=== PATIENT | female | born 1955 | race Caucasian/White ===

== ENCOUNTER 2023-01-23 07:59 | Outpatient (RCR) | payer MEDICARE, SELFPAY ==
--- NOTE | 2023-01-23 13:37 | OPREHPOC ---
Outpatient Therapy Plan of Care This is a Multidisciplinary Plan of Care that may contain components documented by all disciplines (PT, OT, and ST.) PT Problem 1 PT Problem #1 Knowledge Deficit PT Goal 1 Goal 1. Patient to demonstrate independence with HEP to improve progress made in PT. Target Visit 4 PT Problem 2 PT Problem #2 Impaired Strength PT Goal 1 Goal 1. Patient to improve R hip abduction to 4/5 or more to improve strength for stair climbing. 2. Patient to increase R hip flexion/extension/ adduction strength to 4+/5 or greater to improve gait mechanics 3. Patient to improve L hip strength to 5/5 overall to improve gait mechanics. 4. Patient to improve R knee strength to 5/5 overall to allow for patient to perform a squat to reach the floor. Target Visit 8 PT Problem 3 PT Problem #3 Impaired Flexibility PT Goal 1 Goal 1. Patient to increase R hamstring flexibility to lacking no more than 5 degrees to improve ability to reach LEs for donning shoes. Target Visit 8 PT Problem 4 PT Problem #4 Impaired Gait PT Goal 1 Goal 1. Patient to ambulate with equal step length with no AD to improve ability to walk in her neighborhood. 2. Patient to improve distance ambulated during 6 minute walk test to 950 feet to improve endurance for shopping in grocery store. Target Visit 8 PT Problem 5 PT Problem #5 Impaired Functional Mobil PT Goal 1 Goal 1. 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 2. Patient to ascend/descend stairs with reciprocal pattern to allow patient to navigate community environments. Target Visit 8
--- NOTE | 2023-01-23 13:38 | PTOPEVAL1 ---
Assessment and note entered by JT File, PT Evaluation Information Assessment Status Evaluation Diagnosis R hip weakness Onset 01/17/23 Subjective Information Patient reports she had a hip replacement this October, but since this she feels like she has not been walking correctly. She visited the doctor and had x-rays done showing good alignment of the replacement. The doctor suggested the impaired walking may be caused by a weak abductor muscle, and has suggested she walk with a cane. She had PT following the surgery before she moved here in November. She reports some pain occasionally in the hip, mainly along the incision. She is most worried about walking without a limp. 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 She notes she goes sideways up stairs unless she is using the cane. Reported Pain Level Pain Score 0: Self Report Assessment PT Clinical Summary Flakita Alston is a 67 y/o female who presents to skilled PT to address R hip weakness following a MARINA. She presents with impairments in LE strength, ROM, and flexibility. Patient currently has 45% functional decline as assessed by the LEFS. She shows impairments in gait and stair climbing due to limited strength in bilat LEs, limiting her mobility in the home and community. Patient would benefit from skilled PT to address strength, flexibility, ROM, and gait to help her improve function in her daily life. Plan of Care Interventions Electrical Stimulation,Gait Training,Hot Pack/Cold Pack,Manual Therapy,Neuro Re-education,Patient/ Caregiver Educati,Therapeutic Activities, Therapeutic Exercise PT Services Indicated Yes Treatment Frequency and 2x/week for 8 visits Duration These treatments will address the objective and functional deficits as defined above. The patient will be advanced safely and appropriately in order for the patient to progress towards his/her prior level of function. Additional exercises will be introduced and as well as a comprehensive home exercise program upon discharge, if needed, ?to ensure carryover of functional gains achieved in the clinic. This treatment plan has been reviewed and agreement upon by the patient.
--- NOTE | 2023-02-13 08:22 | PTOPDC ---
Assessment and note entered by Melanie No, PT Evaluation Information Assessment Status Discharge Diagnosis R hip weakness Onset 01/17/23 Subjective Information Flakita Alston reports her right hip is doing better. She notes very little pain and feels she has no limitations with her daily function and ability to walk. She feels stronger but still takes stairs one at a time going down. She is able to take them step over step going up and she can grocery shop without limitations. She no longer uses her cane but does take it with her just in case. She feels she has improved 50% overall since initiating PT and that she can continue on her own with home exercises. Reported Pain Level Pain Score 2: Self Report Assessment PT Clinical Summary Flakita Alston has completed 7 skilled PT sessions for right hip weakness. She is reporting a 50% improvement in her symptoms since initiating PT. She is able to perform her daily tasks and walk unlimited without an AD. She demonstrates improved hip and knee strength, improved gait, and improved distance on the 6 minute walk test. She demonstrates good balance and is independent in a home exercise program for hip strengthening to continue after discharge. Plan of Care PT Services Indicated No
--- NOTE | 2023-02-13 08:23 | OPREHPOC ---
Outpatient Therapy Plan of Care This is a Multidisciplinary Plan of Care that may contain components documented by all disciplines (PT, OT, and ST.) PT Problem 1 PT Problem #1 Knowledge Deficit PT Goal 1 Goal 1. Patient to demonstrate independence with HEP to improve progress made in PT. Target Visit 4 Progress Met PT Problem 2 PT Problem #2 Impaired Strength PT Goal 1 Goal 1. Patient to improve R hip abduction to 4/5 or more to improve strength for stair climbing. - progress toward 2. Patient to increase R hip flexion/extension/ adduction strength to 4+/5 or greater to improve gait mechanics -partially met 3. Patient to improve L hip strength to 5/5 overall to improve gait mechanics. -partially met 4. Patient to improve R knee strength to 5/5 overall to allow for patient to perform a squat to reach the floor. -met Target Visit 8 Progress Partially Met PT Problem 3 PT Problem #3 Impaired Flexibility PT Goal 1 Goal 1. Patient to increase R hamstring flexibility to lacking no more than 5 degrees to improve ability to reach LEs for donning shoes. Target Visit 8 Progress Not Met PT Problem 4 PT Problem #4 Impaired Gait PT Goal 1 Goal 1. Patient to ambulate with equal step length with no AD to improve ability to walk in her neighborhood. -met 2. Patient to improve distance ambulated during 6 minute walk test to 950 feet to improve endurance for shopping in grocery store. -not met Target Visit 8 Progress Partially Met PT Problem 5 PT Problem #5 Impaired Functional Mobil PT Goal 1 Goal 1. 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 -progress toward, not met 2. Patient to ascend/descend stairs with reciprocal pattern to allow patient to navigate community environments. -partially met (met on ascent but not descent) Target Visit 8
== END 2023-02-13 15:53 | disposition home or self-care (01) ==
LOC: CHSPT 07:59
PROVIDERS: PCP Family Medicine; Visit Provider Orthopaedic Surgery
DX: Z47.1 Aftercare following joint replacement surgery (principal); Z96.641 Presence of right artificial hip joint
CPT/HCPCS: 97110; 97161

== ENCOUNTER 2024-08-25 09:03 | Outpatient (RCR) | payer MEDICARE, SELFPAY ==
--- NOTE | 2024-08-25 09:04 | OPREHPOC ---
Outpatient Therapy Plan of Care This is a Multidisciplinary Plan of Care that may contain components documented by all disciplines (PT, OT, and ST.) PT Problem 1 PT Problem #1 Knowledge Deficit PT Goal 1 Goal / Goal Update independent and compliant with HEP Target Visit 6 PT Problem 2 PT Problem #2 Pain PT Goal 1 Goal / Goal Update 3/10 or less pain at worst in the lower back Target Visit 12 PT Problem 3 PT Problem #3 Impaired Range of Motion PT Goal 1 Goal / Goal Update 20 degrees active lumbar extension 20 degrees active bilateral side bending Target Visit 12 PT Problem 4 PT Problem #4 Impaired Strength PT Goal 1 Goal / Goal Update R hip abd 4-/5 or better core strength to improve to 3+/5 or better overall Target Visit 12 PT Problem 5 PT Problem #5 Impaired Functional Mobility PT Goal 1 Goal / Goal Update oswestry to display 20% or less functional deficits patient to tolerate sleeping through the night 5 nights a week patient to safely squat and lift small object from floor Target Visit 12
--- NOTE | 2024-08-25 09:05 | PTOPEVAL1 ---
Assessment and note entered by JT File, PT Evaluation Information Assessment Status Evaluation ICD-10 Condition Codes (PT) Pain in low back M54.50 Onset 06/26/24 Subjective Information patient reports she tripped and fell at the grocery store on 06/26/24 and got a compression fracture of the L1 vertebrae. she reports she did struggle to get up from the ground. she reports she has pain in the lower back all the time. she reports she did not have to wear a brace at all after her fracture. she reports she has increased pain with laying flat on her back to go to bed. she reports she is having an MRI at the end of the september. she reports she still does all her daily activities around the house, but has pain with these activities and requires more time to complete. she reports she was not given any restrictions on friday when she say the specialist . Reported Pain Level Pain Score 5: Self Report Assessment PT Clinical Summary mrs. quintanilla is a 69 yo woman who presents to skilled PT services for evaluation and treatment of lower back pain. she presents with back pain following a fall a few months ago. she displays a weak core, weakness in the R hip, poor lumbar mobility, and deficits in sleeping and bending activities. continued skilled PT is indicated to improve her objective/functional deficits and progress towards a return to her prior level functional activity performance/quality of life. Plan of Care Interventions Electrical Stimulation,Gait Training,Hot Pack/Cold Pack,Manual Therapy,Neuro Re-education,Patient/ Caregiver Education,Therapeutic Activities, Therapeutic Exercise PT Services Indicated Yes Treatment Frequency and 3x weekly for 12 visits Duration These treatments will address the objective and functional deficits as defined above. The patient will be advanced safely and appropriately in order for the patient to progress towards his/her prior level of function. Additional exercises will be introduced and as well as a comprehensive home exercise program upon discharge, if needed, to ensure carryover of functional gains achieved in the clinic. This treatment plan has been reviewed and agreement upon by the patient.
--- NOTE | 2024-09-14 08:55 | OPREHPOC ---
Outpatient Therapy Plan of Care This is a Multidisciplinary Plan of Care that may contain components documented by all disciplines (PT, OT, and ST.) PT Problem 1 PT Problem #1 Knowledge Deficit PT Goal 1 Goal / Goal Update independent and compliant with HEP Target Visit 6 Progress Met PT Problem 2 PT Problem #2 Pain PT Goal 1 Goal / Goal Update 3/10 or less pain at worst in the lower back Target Visit 12 Progress Not Met PT Problem 3 PT Problem #3 Impaired Range of Motion PT Goal 1 Goal / Goal Update 20 degrees active lumbar extension 20 degrees active bilateral side bending Target Visit 12 PT Problem 4 PT Problem #4 Impaired Strength PT Goal 1 Goal / Goal Update R hip abd 4-/5 or better core strength to improve to 3+/5 or better overall Target Visit 12 Progress Not Met PT Problem 5 PT Problem #5 Impaired Functional Mobility PT Goal 1 Goal / Goal Update oswestry to display 20% or less functional deficits patient to tolerate sleeping through the night 5 nights a week patient to safely squat and lift small object from floor Target Visit 12 Progress Not Met
--- NOTE | 2024-09-14 08:55 | PTOPPROG ---
Assessment and note entered by JT File, PT Evaluation Information Assessment Status Progress ICD-10 Condition Codes (PT) Pain in low back M54.50 Onset 06/26/24 Subjective Information patient reports she is hurting a little more today . she reports the pain is still constant. she reports sometime the exercises at home will increase her pain. she reports she does not feel like her pain has changed much since starting PT, but does feel like her walking has gotten better. she reports she is compliant with her HEP at home. she does have a recumbent bike at home she uses as well. Assessment PT Clinical Summary mrs. quintanilla presents to skilled PT for her 10th skilled therapy visit. she presents still with lower back pain and weakness in the R hip. she has met her HEP goal, and has made progress toward achievement of her oswestry goal. continued skilled PT is indicated to improve patient objective/functional deficits and progress towards an achievement of her functional goals to improve her quality of life and functional activity performance. Plan of Care Interventions Electrical Stimulation,Gait Training,Hot Pack/Cold Pack,Manual Therapy,Neuro Re-education,Patient/ Caregiver Education,Therapeutic Activities, Therapeutic Exercise PT Services Indicated Yes Treatment Frequency and continue per initial POC Duration These treatments will address the objective and functional deficits as defined above. The patient will be advanced safely and appropriately in order for the patient to progress towards his/her prior level of function. Additional exercises will be introduced and as well as a comprehensive home exercise program upon discharge, if needed, to ensure carryover of functional gains achieved in the clinic. This treatment plan has been reviewed and agreement upon by the patient.
--- NOTE | 2024-09-15 08:16 | PCPTNOTE ---
On 09/15/24, the student, [Marko Francisco], provided care and completed [facility] documentation on this patient. I have reviewed the student's documentation and agree with the findings.
--- NOTE | 2024-09-20 08:49 | OPREHPOC ---
Outpatient Therapy Plan of Care This is a Multidisciplinary Plan of Care that may contain components documented by all disciplines (PT, OT, and ST.) PT Problem 1 PT Problem #1 Knowledge Deficit PT Goal 1 Goal / Goal Update independent and compliant with HEP Target Visit 6 Progress Met PT Problem 2 PT Problem #2 Pain PT Goal 1 Goal / Goal Update 3/10 or less pain at worst in the lower back Target Visit 12 Progress Not Met PT Problem 3 PT Problem #3 Impaired Range of Motion PT Goal 1 Goal / Goal Update 20 degrees active lumbar extension -met 20 degrees active bilateral side bending -not met Target Visit 12 Progress Partially Met PT Problem 4 PT Problem #4 Impaired Strength PT Goal 1 Goal / Goal Update R hip abd 4-/5 or better -met core strength to improve to 3+/5 or better overall -met Target Visit 12 Progress Not Met PT Problem 5 PT Problem #5 Impaired Functional Mobility PT Goal 1 Goal / Goal Update oswestry to display 20% or less functional deficits -not met patient to tolerate sleeping through the night 5 nights a week -met patient to safely squat and lift small object from floor -met Target Visit 12 Progress Partially Met
--- NOTE | 2024-09-20 08:50 | PTOPDC ---
Assessment and note entered by Samira Werner, PT Evaluation Information Assessment Status Progress ICD-10 Condition Codes (PT) Pain in low back M54.50 Onset 06/26/24 Subjective Information Pt reports her back continues to hurt. Her pain is constantly a 4/10 and increases when she does too much such as working around the house. Her back still hurts when lying flat on her back but it's not as bad, and she's able to sleep through the night without being awoken due to pain. She reports she's getting an MRI at the end of the month and is also seeing a doctor in October about her bone density. She reports her exercises are going well and she feels capable of continuing them on her own. Reported Pain Level Pain Score 4: Self Report Assessment PT Clinical Summary Mrs. Alston has attended 12 total skilled PT visits for low back pain following a compression fracture on 06/26/24. Since beginning PT she has made improvements in her hip and core strength and lumbar active ROM, and she has also made progress toward her oswestry goal. She does still experience moderate back pain that increases with ADLs and activity around the home but she has been independent with her HEP and feels capable of continuing exercises independently. Pt is getting an MRI at the end of September and has an appointment with a doctor to discuss her bone density. Will discharge this date and will follow up with pt following MRI and appointment. Plan of Care PT Services Indicated No
== END 2024-09-20 20:00 | disposition home or self-care (01) ==
LOC: CHSPT 09:03
PROVIDERS: PCP Family Medicine
DX: S32.010A Wedge compression fracture of first lumbar vertebra, initial encounter for closed fracture (principal); M54.50 Low back pain, unspecified
CPT/HCPCS: 97014; 97110; 97112; 97140; 97161; 97530; G0283